=== PATIENT | male | born 1945 | race American Indian/Alaskan Native ===

== ENCOUNTER 2018-10-15 18:53 | Emergency (ER) | payer MEDICAID ==
[2018-10-15] MEDS ORDERED: ZOFRAN IV ONE (20:16)
[2018-10-15] MEDS ORDERED: MORPHINE IV ONE (20:16)
--- NOTE | 2018-10-15 20:20 | Emergency Department Report ---
ED Shortness of Breath HPI - General Chief Complaint: High BP Stated Complaint: HBP 231/75/AFTER EYE SURGERY Time Seen by Provider: 10/15/18 20:08 Source: patient Mode of arrival: Ambulatory Limitations: No Limitations - History of Present Illness Initial Comments: Patient is 73 years old male with history of hypertension and diabetes. Patient had an eye surgery this afternoon. Patient presented to the ER complaining of shortness of breath that started after he went home. Patient stated that he is just not feeling well and his daughter checked his blood pressure and stated that it was 210/110. Patient denied chest pain but admitted to shortness of breath every now and then since his surgery. He stated that he has some pain in his eye but not much. Patient denied any fever, nausea or vomiting. MD Complaint: shortness of breath - Related Data Allergies Allergy/AdvReac Type Severity Reaction Status Date / Time No Known Allergies Allergy Unverified 10/15/18 19:16 ED Review of Systems ROS: Stated complaint: HBP 231/75/AFTER EYE SURGERY Other details as noted in HPI Comment: All other systems reviewed and negative Constitutional: denies: chills, fever Respiratory: shortness of breath, SOB at rest. denies: cough, orthopnea, SOB with exertion, stridor, wheezing Cardiovascular: palpitations. denies: chest pain Gastrointestinal: denies: abdominal pain, nausea, vomiting, diarrhea, constipation, hematemesis, melena, hematochezia Genitourinary: denies: urgency, dysuria Musculoskeletal: denies: back pain Neurological: denies: headache, weakness, numbness, paresthesias, confusion, abnormal gait ED Past Medical Hx - Past Medical History Hx Hypertension: Yes Hx Diabetes: Yes Additional medical history: ELEVATED CHOLESTEROL,CATARACTS - Surgical History Additional Surgical History: 2 TIMES BOTH EYES - Social History Smoking Status: Never Smoker Substance Use Type: None ED Physical Exam - General Limitations: No Limitations General appearance: alert, in no apparent distress, anxious - Head Head exam: Present: atraumatic, normocephalic, normal inspection - Eye Eye exam: Present: normal appearance, other (eye patch dressing to the right eye) - ENT ENT exam: Present: normal exam, normal orophraynx, mucous membranes moist - Neck Neck exam: Present: normal inspection, full ROM. Absent: tenderness, meningismus, lymphadenopathy, thyromegaly - Respiratory Respiratory exam: Present: normal lung sounds bilaterally. Absent: respiratory distress, wheezes, rales, rhonchi, stridor, accessory muscle use, decreased breath sounds, prolonged expiratory - Cardiovascular Cardiovascular Exam: Present: tachycardia, normal heart sounds - GI/Abdominal GI/Abdominal exam: Present: soft, normal bowel sounds. Absent: distended, tenderness, guarding, rebound, rigid, organomegaly, mass, bruit, pulsatile mass, hernia - Extremities Exam Extremities exam: Present: normal inspection, full ROM, normal capillary refill. Absent: pedal edema, calf tenderness - Back Exam Back exam: Present: normal inspection, full ROM. Absent: tenderness, CVA tenderness (R), CVA tenderness (L), muscle spasm, paraspinal tenderness, vertebral tenderness - Neurological Exam Neurological exam: Present: alert, oriented X3, CN II-XII intact - Skin Skin exam: Present: warm, intact, normal color ED Course Vital Signs 10/15/18 10/15/18 10/15/18 19:11 20:08 20:12 Temperature 98.2 F 98.5 F Pulse Rate 110 H 103 H 103 H Respiratory 20 16 20 Rate Blood Pressure 209/70 Blood Pressure 192/73 [Right] O2 Sat by Pulse 98 96 96 Oximetry 10/15/18 10/15/18 10/15/18 20:15 20:25 20:31 Temperature Pulse Rate 104 H 106 H Respiratory 15 20 13 Rate Blood Pressure 192/73 Blood Pressure [Right] O2 Sat by Pulse 99 99 Oximetry 10/15/18 10/15/18 10/15/18 21:00 22:00 22:30 Temperature Pulse Rate 102 H 101 H 102 H Respiratory 22 13 Rate Blood Pressure 187/76 194/74 184/76 Blood Pressure [Right] O2 Sat by Pulse 94 94 Oximetry 10/15/18 23:13 Temperature Pulse Rate 96 H Respiratory 15 Rate Blood Pressure Blood Pressure 176/74 [Right] O2 Sat by Pulse 100 Oximetry ED Medical Decision Making - Lab Data Result diagrams: 10/15/18 20:30 10/15/18 20:30 - EKG Data -: EKG Interpreted by [facility] EKG shows normal: sinus rhythm Rate: tachycardia - EKG Data Interpretation: no acute changes - Medical Decision Making Patient is 73 years old male with history of hypertension and diabetes. Patient had an eye surgery this afternoon. Patient presented to the ER complaining of shortness of breath that started after he went home. Patient stated that he is just not feeling well and his daughter checked his blood pressure and stated that it was 210/110. Patient denied chest pain but admitted to shortness of breath every now and then since his surgery. He stated that he has some pain in his eye but not much. Patient denied any fever, nausea or vomiting. Patient stated that he is feeling much better. His blood pressure now is 168/67. Patient denying any chest pain or shortness of breath. Patient will be discharged home to follow up with his primary care physician in the next 2-3 days. I also advised him and his family to return to the ER if his symptoms get worse. Critical care attestation.: If time is entered above; I have spent that time in minutes in the direct care of this critically ill patient, excluding procedure time. ED Disposition Clinical Impression: Shortness of breath, Malignant hypertension Disposition: - TO HOME OR SELFCARE Is pt being admited?: No Condition: Stable Instructions: Hypertension (ED), Dyspnea (ED) Referrals: [facility] [Other] - 3-5 Days
[2018-10-15 20:53] LABS: Basophils % (Auto) 0.4 % (0.0-1.8); Eosinophils # (Auto) 0.1 K/mm3 (0.0-0.4); Eosinophils % (Auto) 0.9 % (0.0-4.3); Hematocrit 41.2 % (35.5-45.6); Hemoglobin 14.5 gm/dl (11.8-15.2); Lymphocytes # (Auto) 1.9 K/mm3 (1.2-5.4); Lymphocytes % (Auto) 21.3 % (13.4-35.0); Mean Corpuscular HGB Conc 35 % (32-34); Mean Corpuscular Volume 87 fl (84-94); Monocytes # (Auto) 0.6 K/mm3 (0.0-0.8); Monocytes % (Auto) 6.6 % (0.0-7.3); Platelet Count 258 K/mm3 (140-440); Red Blood Count 4.72 M/mm3 (3.65-5.03); Red Cell Distribution Width 13.8 % (13.2-15.2)
[2018-10-15 21:03] LABS: INR 0.92 (0.87-1.13)
[2018-10-15 21:04] LABS: Partial Thromboplastin Time 30.1 Sec. (24.2-36.6)
[2018-10-15 21:16] LABS: BUN/Creatinine Ratio 10; Blood Urea Nitrogen 9 mg/dL (9-20); Calcium 9.4 mg/dL (8.4-10.2); Hemolysis Index 10
[2018-10-15] MEDS ORDERED: CATAPRES PO ONE (22:28)
[2018-10-15] MEDS ORDERED: CATAPRES ONE (22:29)
[2018-10-16 01:11] VITALS: BP 157/68
== END 2018-10-16 01:10 | disposition home or self-care (01) ==
LOC: ED 18:53
DX: I10 Essential (primary) hypertension (principal); E11.9 Type 2 diabetes mellitus without complications; E78.00 Pure hypercholesterolemia, unspecified; R06.02 Shortness of breath
CPT/HCPCS: 36415; 80048; 84484; 85025; 85379; 85610; 85730; 93005; 93010; 96374; 96375; 99284; J2270; J2405